=== PATIENT | female | born 1950 | race Asian ===

== ENCOUNTER 2021-03-29 20:50 | Emergency (ER) | payer OTHER, BC ==
[~2021-03-29] VITALS: Ht 152.4 cm; Wt 61.2 kg
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
[2021-03-29 21:13] LABS: ABSOLUTE NEUTROPHILS 3.7 thou/uL (1.4-8.2); BASOPHILS 0.3 % (0.0-2.0); EOSINOPHILS 0.6 % (0.0-3.0); HEMATOCRIT 36.4 % (37.0-47.0); HEMOGLOBIN 12.3 gm/dL (12.0-15.0); LYMPHOCYTES 29.8 % (24.0-44.0); MCH 33.2 pg (26.0-34.0); MCHC 33.8 g/dL (28.0-37.0); MCV 98.4 fL (80.0-100.0); MONOCYTES 7.2 % (1.0-8.0); PLATELET COUNT 220 thou/uL (150-400); POLYS 62.1 % (36.0-66.0)
[2021-03-29] MEDS ORDERED: SINGULAIR 10 MG10 M1 PO (21:25)
[2021-03-29 21:26] LABS: ANION GAP 9 mmol/L (7-16); BUN 18 mg/dL (7-18); CALCIUM 8.2 mg/dL (8.5-10.1); CHLORIDE 104 mmol/L (98-107); CO2 27 mmol/L (21-32); CREATININE 0.9 mg/dL (0.6-1.0); GLUCOSE 292 mg/dL (74-106); POTASSIUM 3.9 mmol/L (3.5-5.1); SODIUM 140 mmol/L (136-145)
[2021-03-29] MEDS ORDERED: MINIVELLE1 EAC1 TRANSDERM (21:26)
[2021-03-29] MEDS ORDERED: HYDROCHLOROTHIA25 M1 PO (21:26)
[2021-03-29] MEDS ORDERED: KLOR-CON 1010 MEQ PO (21:26)
[2021-03-29] MEDS ORDERED: LIPITOR 10 MG10 M1 PO (21:27)
[2021-03-29] MEDS ORDERED: PLAQUENIL200 MG PO (21:27)
[2021-03-29] MEDS ORDERED: COZAAR 25 MG TA25 M1 PO (21:27)
[2021-03-29] MEDS ORDERED: SULFASALAZINE500 M5 PO (21:28)
[2021-03-29 21:30] LABS: ALBUMIN 3.3 g/dL (3.4-5.0); LIPASE 127 U/L (73-393); SGOT 27 U/L (15-37); SGPT 29 U/L (14-59); TOTAL BILIRUBIN 0.4 mg/dL (0.2-1.0); TOTAL PROTEIN 6.9 g/dL (6.4-8.2); TROPONIN-I <0.06 ng/mL (<0.06)
[2021-03-29] MEDS ORDERED: NORCO5 PO (22:44)
[2021-03-29 22:59] VITALS: BP 135/72
--- NOTE | 2021-03-30 16:50 | EKG ---
[address] [address] ELECTROCARDIOGRAM REPORT Name: ADELA ARREGUIN Room #: [facility]#: [id number] Admission: 03/29/21 Attend Phys: Discharge: 03/29/21 Date of : 46 Report #: [id number] [facility] ED Test Date: 2021-03-29 Test Time: 21:19:34 Pat Name: ADELA ARREGUIN Department: Room: Gender: F [employer]: : 1950 Requested By: Guillermo Andrew Order Number: [id number] MD: Apolinar Radford Measurements Intervals [place] Rate: 77 P: 49 GA: 162 QRS: 41 QRSD: 110 T: 36 QT: 402 QTc: 455 Interpretive Statements Sinus rhythm No previous ECG available for comparison Electronically Signed On 03-30-2021 16:50:41 CDT by Apolinar Radford [email or web address] <ELECTRONICALLY SIGNED> By: Apolinar Radford MD, [facility] 03/30/21 1650 2119 Apolinar Radford MD, FACC /EPI
== END 2021-03-29 23:00 | disposition home or self-care (01) ==
LOC: ER 20:50
PROVIDERS: Emergency Medicine
DX: S20.219A Contusion of unspecified front wall of thorax, initial encounter (principal); I10 Essential (primary) hypertension; Z79.899 Other long term (current) drug therapy; V43.52XA Car driver injured in collision with other type car in traffic accident, initial encounter; V89.2XXA Person injured in unspecified motor-vehicle accident, traffic, initial encounter; V49.88XA Car occupant (driver) (passenger) injured in other specified transport accidents, initial encounter; Y93.89 Activity, other specified; Y92.89 Other specified places as the place of occurrence of the external cause; Y99.8 Other external cause status